=== PATIENT | male | born 1960 ===

== ENCOUNTER 2018-06-14 07:23 | Outpatient (CLI) | payer OTHER ==
[~2018-06-14 07:23] MED LIST: AMOX1TAB12; ENALAPRIL/HCTZ1 TAB; PROSCAR5 MG; TRAMADOL HCL25 GM; XANAX1 MG; [UNRECOGNIZED DRUG - OTHER]
== END 2018-06-14 07:32 | disposition home or self-care (01) ==
LOC: NUCLEAR 07:23
DX: I73.9 Peripheral vascular disease, unspecified (principal); I80.223 Phlebitis and thrombophlebitis of popliteal vein, bilateral; E66.8 Other obesity; L03.115 Cellulitis of right lower limb; E78.89 Other lipoprotein metabolism disorders; I10 Essential (primary) hypertension

== ENCOUNTER 2019-06-10 11:46 | Emergency (ER) | payer OTHER ==
[~2019-06-10] VITALS: Ht 170.2 cm; Wt 107.0 kg
[2019-06-10] MEDS ORDERED: ECOTRIN81 MG (12:25)
[2019-06-10] MEDS ORDERED: RELAPHEN (12:25)
[2019-06-10] MEDS ORDERED: LASIX20 MG (12:25)
[2019-06-10] MEDS ORDERED: B COMPLEX1 EACH (12:26)
[2019-06-10] MEDS ORDERED: LOTREL 10-20 M1 EACH (12:26)
[2019-06-10] MEDS ORDERED: PRILOSEC OTC20 MG (12:26)
[2019-06-10] MEDS ORDERED: SIMVASTATIN5 MG (12:27)
== END 2019-06-10 13:19 | disposition home or self-care (01) ==
LOC: ER 11:46
DX: J03.90 Acute tonsillitis, unspecified (principal)

== ENCOUNTER 2020-08-27 16:07 | Emergency (ER) | payer OTHER ==
[~2020-08-27] VITALS: Ht 170.2 cm; Wt 104.3 kg
[~2020-08-27 16:07] MED LIST changes: +B COMPLEX1 EACH; +ECOTRIN81 MG; +LASIX20 MG; +LOTREL 10-20 M1 EACH; +PRILOSEC OTC20 MG; +RELAPHEN; +SIMVASTATIN5 MG
== END 2020-08-27 18:08 | disposition home or self-care (01) ==
LOC: ER 16:07
DX: M79.604 Pain in right leg (principal); R60.0 Localized edema

== ENCOUNTER 2020-09-13 13:33 | Emergency (ER) | payer OTHER ==
[~2020-09-13] VITALS: Ht 170.2 cm; Wt 111.1 kg
== END 2020-09-13 18:07 | disposition home or self-care (01) ==
LOC: ER 13:33
DX: I87.2 Venous insufficiency (chronic) (peripheral) (principal); M79.604 Pain in right leg; M54.5 Low back pain

== ENCOUNTER 2021-11-28 19:14 | Emergency (ER) | payer OTHER ==
[~2021-11-28] VITALS: Ht 170.2 cm; Wt 104.3 kg
[2021-11-28] MEDS ORDERED: AMLODIPINE-BEN1 EAC1 PO (19:34)
[2021-11-28] MEDS ORDERED: CARVEDILOL25 M1 PO (19:34)
[2021-11-28] MEDS ORDERED: OMEGA 3-6-9 CO400 MG PO (19:36)
== END 2021-11-29 07:09 | disposition home or self-care (01) ==
LOC: ER 19:14
DX: I83.218 Varicose veins of right lower extremity with both ulcer of other part of lower extremity and inflammation (principal); L97.819 Non-pressure chronic ulcer of other part of right lower leg with unspecified severity; B95.61 Methicillin susceptible Staphylococcus aureus infection as the cause of diseases classified elsewhere; E78.5 Hyperlipidemia, unspecified; I10 Essential (primary) hypertension; I73.9 Peripheral vascular disease, unspecified

== ENCOUNTER 2023-02-15 12:59 | Outpatient (CLI) | payer OTHER ==
[~2023-02-15 12:59] MED LIST changes: +AMLODIPINE-BEN1 EAC1 PO; +CARVEDILOL25 M1 PO; +OMEGA 3-6-9 CO400 MG PO
== END 2023-02-15 13:16 | disposition home or self-care (01) ==
LOC: SONOGRAMA 12:59
PROVIDERS: ATTEND Internal Medicine
DX: M75.01 Adhesive capsulitis of right shoulder (principal)